=== PATIENT | male | born 1955 | race Caucasian/White ===

== ENCOUNTER 2023-01-20 10:14 | Outpatient (CLI) | payer MEDICARE, OTHER, SELFPAY ==
--- NOTE | 2023-01-20 10:15 | CRLHL7_ITS ---
For Patients: As a result of the Century Cures Act, medical imaging exams and procedure reports are released immediately into your electronic medical record. You may view this report before your referring provider. If you have questions, please contact your health care provider. INDICATION: RT TESTICLE SWELLING COMPARISON: none TECHNIQUE: Richter scale imaging was performed of the scrotum. In addition color Doppler and spectral Doppler analysis was performed of the testes. FINDINGS: The testes demonstrate normal arterial and venous blood flow on color Doppler and spectral Doppler analysis. The testes have uniform echogenicity with no evidence of a suspicious mass or area of inflammation. The right testis measures 4.9 x 3.2 x 3.1 cm in size and the left testis measures 5.1 x 2.7 x 3.1 cm. The epididymis appears normal bilaterally. No varicocele. Right-sided hydrocele. IMPRESSION: Right hydrocele. Dictated by Manuel Cummings MD @ 01/20/2023 11:24:30 AM (Electronically Signed)
== END 2023-01-20 10:15 | disposition home or self-care (01) ==
LOC: US 10:14
PROVIDERS: PCP Family Medicine; Visit Provider Family Medicine
DX: N45.3 Epididymo-orchitis (principal); N43.3 Hydrocele, unspecified
CPT/HCPCS: 76870; 93976